=== PATIENT | male | born 1950 | race Caucasian/White ===

== ENCOUNTER 2022-06-28 06:58 | Day surgery (SDC) | payer OTHER ==
[2022-06-28] VITALS (7 sets, daily range): BP systolic 115–138; BP diastolic 67–80
[~2022-06-28] VITALS: Ht 182.9 cm; Wt 85.3 kg
[~2022-06-28 06:58] MED LIST: ALBU108A5 IN; ASPI-543 PO; BUDE1AER5 IN; FLUT1AER3 IN; FURO40TA4 PO; GABA300C10 PO; GLIP5TAB12 PO; METF-372 PO; METO25TA5 PO; POM; POTA10TA32 PO
[2022-06-28] MEDS ORDERED: IOHEXOL 350 MG/ML 100ML IJ ONE (07:50)
[2022-06-28] MEDS ORDERED: LIDOCAINE 2%HCL (LOCAL ANESTH.) INJ 20ML MDV ONE (07:50)
[2022-06-28] MEDS ORDERED: IODIXANOL 320MG/ML 100ML BTL IV ONE (07:50)
[2022-06-28] MEDS ORDERED: fentaNYL CITRATE 100 MCG/2 ML VL ONE (08:15)
[2022-06-28] MEDS ORDERED: HEPARIN SODIUM (PORCINE) 5000 UNITS/ML 1ML VIAL ONE (08:15)
[2022-06-28] MEDS ORDERED: ANGIOMAX 250 MG VIAL IV ONE (08:15)
[2022-06-28] MEDS ORDERED: MIDAZOLAM HCL 2MG/2ML 2ml VIAL (1mg/ml) ONE (08:16)
[2022-06-28] MEDS ORDERED: SODIUM CHL 0.9% 0 ML ONE (08:16)
[2022-06-28] MEDS ORDERED: VERAPAMIL 2.5MG/ML INJ 2ML VIAL IV ONE (08:35)
== END 2022-06-28 11:25 | disposition home or self-care (01) ==
LOC: CATH 06:58
PROVIDERS: ATTEND Internal Medicine
DX: I27.20 Pulmonary hypertension, unspecified (principal); I25.10 Atherosclerotic heart disease of native coronary artery without angina pectoris; J44.9 Chronic obstructive pulmonary disease, unspecified; F17.200 Nicotine dependence, unspecified, uncomplicated; Z20.822 Contact with and (suspected) exposure to COVID-19
CPT/HCPCS: 93456; C1751; C1769; C1887; C1894; J1644; J2250; J3010; Q9967; U0003; 93458; 99152; 99153

== ENCOUNTER 2023-04-09 16:00 | Inpatient (IN) | payer OTHER ==
[~2023-04-09] VITALS: Ht 182.9 cm; Wt 86.3 kg
[~2023-04-09 16:00] MED LIST changes: +GABA-1250 PO; -GABA300C10 PO; +POTA-228 PO; -POTA10TA32 PO
[2023-04-09 16:16] VITALS: PULSE 82; RESP 18; O2SAT 96
[2023-04-09 17:03] LABS: Basophils # (auto) 0.1 10 ^3/uL (0-0.2); Basophils % (auto) 0.9 % (0.0-2.0); Eosinophils # (auto) 0.2 10 ^3/uL (0-0.8); Eosinophils % (auto) 1.7 % (0.0-7.0); Hematocrit 42.3 % (41.0-53.0); Hemoglobin 14.4 g/dL (13.5-17.5); Lymphocytes # (auto) 1.6 10 ^3/uL (0.4-5.4); Lymphocytes % (auto) 15.7 % (10.0-50.0); Mean Corpuscular Hemoglobin 31.6 pg (28.0-32.0); Mean Corpuscular Hgb Conc. 33.9 g/dL (32.0-36.0); Monocytes # (auto) 0.9 10 ^3/uL (0-1.3); Monocytes % (auto) 8.6 % (0.0-12.0); Neutrophils # (auto) 7.6 10 ^3/uL (1.6-8.6); Neutrophils % (auto) 73.1 % (37.0-80.0); Nucleated Red Blood Cells % 0.2 %; Red Blood Cells 4.55 10^6/uL (4.5-5.90); Red Cell Distribution Width 13.9 % (11.8-14.3); White Blood Cell 10.4 10^3/uL (4.4-10.8)
[2023-04-09 17:22] LABS: Albumin 3.5 g/dL (3.4-5.0); BUN/Creatinine Ratio 18.7 (10.0-20.0); Calcium 8.9 mg/dL (8.5-10.1); Magnesium 1.9 mg/dL (1.6-2.6); Potassium 3.9 mmol/L (3.5-5.1)
[2023-04-09 17:25] LABS: Bilirubin, Total 0.8 mg/dL (0.2-1.0)
[2023-04-09 18:57] LABS: INR 1.14 (0.9-1.15); Prothrombin Time 11.9 sec (9.3-11.8)
[2023-04-09 19:37] LABS: Lactic Acid w/Reflex 2.3 mmol/L (0.4-2.0)
[2023-04-09 20:01] LABS: Urine Bacteria NONE SEEN /hpf (None Seen); Urine Blood Negative /uL (Negative); Urine Clarity Clear (Clear); Urine Color Yellow (Yellow); Urine Hyaline Cast FEW /lpf (0 - 2); Urine Mucus FEW (None Seen); Urine Protein, UAD 1+ (Negative); Urine Specific Gravity 1.018 (1.001-1.035); Urine Urobilinogen Normal (Negative); Urine WBC 1 /hpf (0 - 3)
[2023-04-09 20:10] VITALS: PULSE 74; RESP 18; O2SAT 92
[2023-04-09 20:20] LABS: Alcohol, Urine < 3.0 mg/dL (0-10); Amphetamine Screen, Urine NEGATIVE (NEGATIVE); Barbiturate Scree,Urine NEGATIVE (NEGATIVE); Benzodiazephine Screen, Urine NEGATIVE (NEGATIVE); Cannabinoid Screen, Urine NEGATIVE (NEGATIVE); Cocaine Screen, Urine NEGATIVE (NEGATIVE); Opiate Scree,Urine NEGATIVE (NEGATIVE); Phencyclidine Screen, Urine NEGATIVE (NEGATIVE)
[2023-04-09] MEDS ORDERED: DOXY-286 PO (21:14)
[2023-04-09] MEDS ORDERED: DOXYCYCLINE 100 MG TAB/CAP PO ONE (21:15)
[2023-04-09] MEDS ORDERED: MORPHINE SULFATE INJ 2 MG/ml SYRG IV PRN (22:00)
[2023-04-09] MEDS ORDERED: HYDROcodone-ACET 5/325MG TAB PO PRN (22:00)
[2023-04-09] MEDS ORDERED: NITROGLYCERIN 0.4 MG SL TAB SL PRN (22:00)
[2023-04-09] MEDS ORDERED: hydrALAZINE HCL 10 MG TAB PO PRN (22:00)
[2023-04-09] MEDS ORDERED: ALBUTEROL SULF 2.5 MG/0.5ML(0.5%) NEB SOLN NEB PRN (22:00)
[2023-04-09] MEDS ORDERED: ACETAMINOPHEN 325 MG TAB PO PRN (22:00)
[2023-04-09] MEDS ORDERED: ONDANSETRON HCL 4 MG/2 ML VIAL IV PRN (22:00)
[2023-04-09] MEDS ORDERED: DEXTROSE (50%) 50ML SYRG IV PRN (22:00)
[2023-04-09 22:41] VITALS: BP 105/76; PULSE 74; RESP 18; TEMP 98; O2SAT 92
[2023-04-09] MEDS: ACCU-CHEK COMFORT CURVE STRIP VI SCH (22:41)
[2023-04-09] MEDS: InsuLIN REG 1unit/0.01ml Soln (100units/ml) SC SCH (22:42)
[2023-04-09 22:45] VITALS: O2SAT 92
[2023-04-09] MEDS: ALBUTEROL SULF HFA 90MCG INH 200DOSE IN SCH (23:44)
[2023-04-10 06:03] VITALS: O2SAT 93
[2023-04-10] MEDS: GABAPENTIN 300 MG CAP PO SCH ×2 (06:20→06:21)
[2023-04-10 06:22] LABS: Basophils # (auto) 0.1 10 ^3/uL (0-0.2); Eosinophils # (auto) 0.3 10 ^3/uL (0-0.8); Eosinophils % (auto) 3.3 % (0.0-7.0); Hemoglobin 13.8 g/dL (13.5-17.5); Lymphocytes # (auto) 2.2 10 ^3/uL (0.4-5.4); Lymphocytes % (auto) 27.4 % (10.0-50.0); Mean Corpuscular Hemoglobin 31.8 pg (28.0-32.0); Mean Corpuscular Hgb Conc. 34.5 g/dL (32.0-36.0); Mean Corpuscular Volume 92.2 fL (80.0-100.0); Monocytes # (auto) 0.9 10 ^3/uL (0-1.3); Monocytes % (auto) 11.5 % (0.0-12.0); Neutrophils # (auto) 4.6 10 ^3/uL (1.6-8.6); Neutrophils % (auto) 56.8 % (37.0-80.0); Nucleated Red Blood Cells % 0.4 %; Red Blood Cells 4.34 10^6/uL (4.5-5.90); Red Cell Distribution Width 14.3 % (11.8-14.3); White Blood Cell 8.1 10^3/uL (4.4-10.8)
[2023-04-10] MEDS: InsuLIN REG 1unit/0.01ml Soln (100units/ml) SC SCH ×4 (06:49→22:00)
[2023-04-10] MEDS: ACCU-CHEK COMFORT CURVE STRIP VI SCH ×3 (06:49→16:54)
[2023-04-10] MEDS: ALBUTEROL SULF HFA 90MCG INH 200DOSE IN SCH (06:49)
[2023-04-10 06:57] LABS: Calcium 8.7 mg/dL (8.5-10.1)
[2023-04-10 06:59] LABS: BUN/Creatinine Ratio 20.7 (10.0-20.0)
[2023-04-10 07:20] VITALS: PULSE 89; RESP 21; O2SAT 91
[2023-04-10] MEDS: DOXYCYCLINE 100MG/250ML 250 ML IV SCH (09:50)
[2023-04-10] MEDS: METOPROLOL TARTRATE 25 MG TAB PO SCH (09:51)
[2023-04-10] MEDS: ASPirin-EC 81 mg tab PO SCH (09:59)
[2023-04-10] MEDS ORDERED: PATIENTS OWN MEDICATION (Fluticasone-Umeclidinium-Vilan (Trelegy Ellipta 100-62.5-25 Mcg/I IN SCH (10:00)
[2023-04-10 14:11] LABS: Cholesterol 163 mg/dL (< 200); HDL Cholesterol 37 mg/dL (40-59); LDL Cholesterol 110 mg/dL (< 100); Triglycerides 133 mg/dL (< 150)
[2023-04-10 18:15] VITALS: O2SAT 94
[2023-04-10] MEDS ORDERED: ATORVASTATIN 20 MG TAB PO SCH (22:00)
[2023-04-10] MEDS: BUDESONIDE (INHALATION) 0.5 MG/2 ML NEB NEB SCH (22:00)
[2023-04-10 23:54] VITALS: PULSE 74; RESP 18
[2023-04-11] VITALS (8 sets, daily range): BP systolic 105–131; BP diastolic 52–77; PULSE 59–71; RESP 16–18; TEMP 97.6–98.7; O2SAT 91–97
[2023-04-11] MEDS: methylPREDNISolone SOD SUCC 40 MG/ML VL IV SCH ×3 (00:18→12:11)
[2023-04-11] MEDS: DOXYCYCLINE 100MG/250ML 250 ML IV SCH (00:18)
[2023-04-11] MEDS: METOPROLOL TARTRATE 25 MG TAB PO SCH ×2 (00:19→12:11)
[2023-04-11] MEDS: GABAPENTIN 300 MG CAP PO SCH ×2 (00:21→06:00)
[2023-04-11] MEDS: ACCU-CHEK COMFORT CURVE STRIP VI SCH ×3 (00:22→11:30)
[2023-04-11] MEDS: InsuLIN REG 1unit/0.01ml Soln (100units/ml) SC SCH ×2 (06:29→12:12)
[2023-04-11] MEDS: BUDESONIDE (INHALATION) 0.5 MG/2 ML NEB NEB SCH (07:34)
[2023-04-11] MEDS: ASPirin-EC 81 mg tab PO SCH (10:32)
[2023-04-11] MEDS ORDERED: BUDE1AER5 IN (15:39)
[2023-04-11] MEDS ORDERED: DOXY-286 PO (16:48)
[2023-04-11] MEDS ORDERED: PRED20TA2 PO (16:48)
[2023-04-11] MEDS ORDERED: methylPREDNISolone SOD SUCC 40 MG/ML VL IV SCH (22:00)
== END 2023-04-11 17:50 | disposition home or self-care (01) | DRG 193 ==
LOC: ER 16:00 → TELE 22:18 → TELE-WESTW 04-10 21:22
PROVIDERS: ADMIT Nurse Practitioner Family; ATTEND Hospitalist
DX: J18.1 Lobar pneumonia, unspecified organism (principal); J96.20 Acute and chronic respiratory failure, unspecified whether with hypoxia or hypercapnia; I47.1 Supraventricular tachycardia; I12.9 Hypertensive chronic kidney disease with stage 1 through stage 4 chronic kidney disease, or unspecified chronic kidney disease; I27.20 Pulmonary hypertension, unspecified; J43.9 Emphysema, unspecified; E11.22 Type 2 diabetes mellitus with diabetic chronic kidney disease; N18.9 Chronic kidney disease, unspecified; I25.10 Atherosclerotic heart disease of native coronary artery without angina pectoris; I71.40 Abdominal aortic aneurysm, without rupture, unspecified; Z79.82 Long term (current) use of aspirin; Z79.899 Other long term (current) drug therapy; Z90.49 Acquired absence of other specified parts of digestive tract; Z82.49 Family history of ischemic heart disease and other diseases of the circulatory system; Z80.0 Family history of malignant neoplasm of digestive organs; Z87.891 Personal history of nicotine dependence; Z83.3 Family history of diabetes mellitus; Z79.4 Long term (current) use of insulin
CPT/HCPCS: 36415; 71045; 78582; 80048; 80053; 80061; 80307; 81001; 82962; 83036; 83605; 83690; 83735; 83880; 84443; 84484; 85025; 85379; 85610; 85730; 87040; 93005; 93306; 94640; 96365; G0378; J1815; J3490